=== PATIENT | male | born 1960 | race Asian ===

== ENCOUNTER 2019-01-17 13:11 | Emergency (ER) | payer OTHER ==
[~2019-01-17] VITALS: Ht 165.1 cm; Wt 57.7 kg
[2019-01-17 13:19] VITALS: Ht 165.1 cm; Wt 57.7 kg
--- NOTE | 2019-01-17 14:09 | ERD ---
ER Documentation Chief Complaint Chief Complaint LT sided intermittent CWP x3days, non-provoke radiates to neck/malaise HPI 58-year-old male, with history of sigmoid colon stage III, presents the emergency department, complaining of 3 episodes of left side chest pain. The first episode occurred 3 days ago, the patient was at rest, the pain was sharp, lasted approximately 10 minutes. The second episode occurred last night similar circumstances, lasting 20 minutes approximately. The last episode occurred today prior to arrival, lasting 10 minutes, associated with shortness of breath, nausea and palpitations. ROS All systems reviewed and are negative except as per history of present illness. Medications Home Meds Active Scripts Ranitidine Hcl* (Zantac*) 150 Mg Tablet, 150 MG PO BID PRN for EPIGASTRIC PAIN, #20 TAB Prov:MARLIN SARMIENTO MD 01/17/19 Lorazepam* (Ativan*) 0.5 Mg Tablet, 0.5 MG PO Q8H PRN for ANXIETY, #10 TAB Prov:MARLIN SARMIENTO MD 01/17/19 Allergies Allergies: Coded Allergies: No Known Allergy (Unverified , 01/17/19) PMhx/Soc Hx Miscellaneous Medical Probl: Yes (recent dx of ca, taking PO chemotherapy tablets ) Hx Alcohol Use: No Hx Substance Use: No Hx Tobacco Use: No Smoking Status: Never smoker Physical Exam Vitals Vital Signs Date Temp Pulse Resp B/P (MAP) Pulse Ox O2 O2 Flow FiO2 Time Delivery Rate 01/17/19 97.8 70 18 119/72 99 Room Air 15:47 (88) 01/17/19 97.8 71 20 120/71 99 14:30 (87) 01/17/19 97.8 99 20 117/66 99 13:19 (83) Physical Exam Const: No acute distress Head: Atraumatic Eyes: Normal Conjunctiva ENT: Normal External Ears, Nose and Mouth. Neck: Full range of motion. No meningismus. Resp: Clear to auscultation bilaterally Cardio: Regular rate and rhythm, no murmurs Abd: Soft, non tender, non distended. Normal bowel sounds Skin: No petechiae or rashes Back: No midline or flank tenderness Ext: No cyanosis, or edema Neur: Awake and alert Psych: Normal Mood and Affect Result Diagram: 01/17/19 1424 01/17/19 1424 Results 24 hrs Laboratory Tests Test 01/17/19 14:24 White Blood Count 5.6 10^3/ul Red Blood Count 5.24 10^6/ul Hemoglobin 12.2 g/dl Hematocrit 40.5 % Mean Corpuscular Volume 77.3 fl Mean Corpuscular Hemoglobin 23.3 pg Mean Corpuscular Hemoglobin Concent 30.1 g/dl Red Cell Distribution Width 21.2 % Platelet Count 277 10^3/UL Mean Platelet Volume 8.4 fl Immature Granulocytes % 0.200 % Neutrophils % 73.3 % Lymphocytes % 16.9 % Monocytes % 6.8 % Eosinophils % 2.3 % Basophils % 0.5 % Nucleated Red Blood Cells % 0.0 /100WBC Immature Granulocytes # 0.010 10^3/ul Neutrophils # 4.1 10^3/ul Lymphocytes # 0.9 10^3/ul Monocytes # 0.4 10^3/ul Eosinophils # 0.1 10^3/ul Basophils # 0.0 10^3/ul Nucleated Red Blood Cells # 0.0 10^3/ul Prothrombin Time 12.5 Sec Prothrombin Time Ratio 1.0 INR International Normalized Ratio 0.92 Activated Partial Thromboplast Time 31.4 Sec D-Dimer 324.89 ng/ml D-Dimer Comment Sodium Level 142 mmol/L Potassium Level 4.2 mmol/L Chloride Level 103 mmol/L Carbon Dioxide Level 33 mmol/L Anion Gap 6 Blood Urea Nitrogen 14 mg/dl Creatinine 0.86 mg/dl Est Glomerular Filtrat Rate mL/min > 60 mL/min Glucose Level 86 mg/dl Calcium Level 9.5 mg/dl Troponin I < 0.012 ng/ml B-Type Natriuretic Peptide < 11 PG/ML Lipase 137 U/L Procedures/MDM Vital signs stable. Differential diagnosis include but not limited to: URI, PNA, chostochondritis, GERD, musculoskeletal injury, less likely PE, pericarditis, endocarditis. Pertinent Data: 12 Lead ECG: Sinus rhythm, no ST changes, normal T wave, normal intervals Radiology: Chest x-rays: Normal Physical examination and clinical presentation consistent most likely with chest pain most likely secondary to anxiety During the ED course the patient remained stable, no new complaints. Results and clinical impression discussed with patient who agrees with management. The patient is stable to be treated outpatient and will be discharged home with a Rx for ibuprofen; some side effects of prescribed medications (headache, rash, nausea, vomiting, diarrhea, drowsiness, habituation, bleeding, hypertension, interactions with other medications) were r eviewed. The patient was instructed to follow up with the primary care provider in the next 48h. If symptoms persist, worsen or new symptoms develop, then patient should return to the ED immediately. Instructions explained and given directly by me to the patient with acknowledgment and demonstrated understanding. Disclaimer: Inadvertent spelling and grammatical errors are likely due to EHR/dictation software use and do not reflect on the overall quality of patient care. Also, please note that the electronic time recorded on this note does not necessarily reflect the actual time of the patient encounter. Departure Diagnosis: Primary Impression: Chest pain Additional Impression: Anxiety Condition: Stable Additional Instructions: Thank you very much for allowing us to participate in your care. Your health and safety is our top priority at [facility]. Call your primary care doctor TOMORROW for an appointment during the next 2-4 days and bring all the information and medications prescribed. Have prescriptions filled and follow precisely the directions on the label. If the symptoms get worse and your provider is unavailable, return to the Emergency Department immediately. MARLIN SARMIENTO MD Jan 17, 2019 14:09
[2019-01-17] MEDS ORDERED: LORA-441 PO (15:38)
[2019-01-17] MEDS ORDERED: RANI150T35 PO (15:38)
[2019-01-17 15:47] VITALS: BP 119/72; PULSE 70; RESP 18
== END 2019-01-17 15:48 | disposition home or self-care (01) ==
LOC: FTE 13:11
DX: C18.7 Malignant neoplasm of sigmoid colon (principal)
CPT/HCPCS: 36415; 71046; 80048; 83690; 83880; 84484; 85025; 85378; 85610; 85730; 93005; Z7502; Z7610

== ENCOUNTER 2019-02-26 18:55 | Emergency (ER) | payer OTHER ==
[~2019-02-26] VITALS: Ht 167.6 cm; Wt 58.0 kg
[~2019-02-26 18:55] MED LIST: LORA-441 PO; RANI150T35 PO
[2019-02-26 20:05] VITALS: Ht 167.6 cm; Wt 58.0 kg
[2019-02-26] MEDS ORDERED: morphine 4 MG/ML VIAL IV STA (21:06)
[2019-02-26] MEDS ORDERED: ONDANSETRON 4 MG INJ IV STA (21:06)
[2019-02-26] MEDS ORDERED: SOD CHLORIDE 0.9% 1,000 ML IV STA (21:06)
--- NOTE | 2019-02-26 21:20 | ERD ---
ER Documentation Chief Complaint Chief Complaint AP w/ rectal pain/diarrhea x4 days. no n/v HPI This is a 58-year-old male with a history of stage III sigmoid carcinoma status post sigmoid resection. The patient was initially diagnosed with sigmoid cancer T3 N1 on September 09, 2018. He underwent surgical intervention on November 27, 2018. The surgery was performed at [facility]. The patient is currently undergoing radiation treatment and his radiation oncologist is Dr. Sheron Scruggs and his pulpwood buyer oncologist is Dr. Ariza. The patient had his radiation treatment today. Indicates he takes Abiquiu which often results in diarrhea however he also takes sucralfate and antidiarrheals. He indicates however over the past 2 days he has been having loose stools roughly every 30 minutes. He also complains of pain around the rectal region while stooling. He denies any blood in his stool. He said no fevers or shaking or chills. He denies any abdominal pain or cramping. He has had no shortness of breath at rest or exertion. He has had no recent hospitalizations or antibiotic use. ROS All systems reviewed and are negative except as per history of present illness. Medications Home Meds Active Scripts Ranitidine Hcl* (Zantac*) 150 Mg Tablet, 150 MG PO BID PRN for EPIGASTRIC PAIN, #20 TAB Prov:MARLIN SARMIENTO MD 01/17/19 Lorazepam* (Ativan*) 0.5 Mg Tablet, 0.5 MG PO Q8H PRN for ANXIETY, #10 TAB Prov:MARLIN SARMIENTO MD 01/17/19 Allergies Allergies: Coded Allergies: No Known Allergy (Unverified , 01/17/19) PMhx/Soc Hx Miscellaneous Medical Probl: Yes (recent dx of ca, taking PO chemotherapy tablets ) Hx Alcohol Use: No Hx Substance Use: No Hx Tobacco Use: No Physical Exam Vitals Vital Signs Date Temp Pulse Resp B/P (MAP) Pulse Ox O2 O2 Flow FiO2 Time Delivery Rate 02/26/19 98.8 58 16 144/76 100 20:05 (98) Physical Exam Constitutional:Well-developed. Well-nourished. HEENT:Normocephalic. Atraumatic.Pupils were equal round reactive to light. Dry mucous membranes.No tonsillar exudates. Neck: No nuchal rigidity. No lymphadenopathy. No posterior cervical spine tenderness or step-offs. Respiratory: Not using accessory muscles of respiration.Lungs were clear to auscultation bilaterally. No rhonchi. No rales. No wheezing. Cardiovascular: Regular rate regular rhythm.No murmurs. No rubs were apprecia nancy.S1, S2 normal. Distal pulses are palpable 2+ bilaterally. GI: Abdomen was soft. Mild tenderness in left lower quadrant with midline surgical scar beneath the umbilicus. Non Distended. No pulsatile abdominal masses or bruits. No rebound. No guarding. Bowel sounds were present and normal. Rectal: No surrounding perirectal erythremia or tenderness. Fecal occult blood test positive and no gross blood per rectum. Muscle skeletal: Full range of motion of both the upper and lower extremities bilaterally.Normal muscle tone.No assymetrical calf tenderness or swelling. Skin: No petechia, no purpura. No lesions on the palms or the soles of the feet. No maculopapular rash. NEURO: Patient was alert, awake, orientated x3.No facial droop. Gait observed and normal with no ataxia.Speech had regular rate and rhythm. No focal neurological deficits. Result Diagram: 02/26/19211602/26/192116 Results 24 hrs Laboratory Tests Test 02/26/19 21:17 White Blood Count 5.5 10^3/ul Red Blood Count 4.74 10^6/ul Hemoglobin 12.0 g/dl Hematocrit 38.4 % Mean Corpuscular Volume 81.0 fl Mean Corpuscular Hemoglobin 25.3 pg Mean Corpuscular Hemoglobin Concent 31.3 g/dl Red Cell Distribution Width 20.8 % Platelet Count 263 10^3/UL Mean Platelet Volume 8.1 fl Immature Granulocytes % 0.400 % Neutrophils % 77.4 % Lymphocytes % 5.3 % Monocytes % 10.8 % Eosinophils % 5.7 % Basophils % 0.4 % Nucleated Red Blood Cells % 0.0 /100WBC Immature Granulocytes # 0.020 10^3/ul Neutrophils # 4.2 10^3/ul Lymphocytes # 0.3 10^3/ul Monocytes # 0.6 10^3/ul Eosinophils # 0.3 10^3/ul Basophils # 0.0 10^3/ul Nucleated Red Blood Cells # 0.0 10^3/ul Prothrombin Time 12.7 Sec Prothrombin Time Ratio 1.0 INR International Normalized Ratio 0.94 Activated Partial Thromboplast Time Pending Urine Color YELLOW Urine Clarity CLEAR Urine pH 6.0 Urine Specific Har[place]ld 1.013 Urine Ketones NEGATIVE mg/dL Urine Nitrite NEGATIVE mg/dL Urine Bilirubin NEGATIVE mg/dL Urine Urobilinogen NEGATIVE mg/dL Urine Leukocyte Esterase NEGATIVE Dona/ul Urine Microscopic RBC 3 /HPF Urine Microscopic WBC 5 /HPF Urine Bacteria FEW /HPF Urine Mucus FEW /HPF Urine Hemoglobin 1+ mg/dL Urine Glucose NEGATIVE mg/dL Urine Total Protein NEGATIVE mg/dl Sodium Level 141 mmol/L Potassium Level 3.7 mmol/L Chloride Level 102 mmol/L Carbon Dioxide Level 31 mmol/L Anion Gap 8 Blood Urea Nitrogen 10 mg/dl Creatinine 1.14 mg/dl Est Glomerular Filtrat Rate mL/min > 60 mL/min Glucose Level 98 mg/dl Calcium Level 9.6 mg/dl Total Bilirubin 0.6 mg/dl Direct Bilirubin 0.00 mg/dl Indirect Bilirubin 0.6 mg/dl Aspartate Amino Transf (AST/SGOT) 17 IU/L Alanine Aminotransferase (ALT/SGPT) 9 IU/L Alkaline Phosphatase 87 IU/L Troponin I < 0.012 ng/ml Total Protein 7.6 g/dl Albumin 4.3 g/dl Globulin 3.30 g/dl Albumin/Globulin Ratio 1.30 Amylase Level 95 U/L Lipase 76 U/L Current Medications Medications Dose Sig/Anna Start Time Status Last (Trade) Ordered Route PRN Stop Time Admin Dose Reason Admin Sodium 1,000 ml @ Q1H STAT 02/26/19 DC 02/26/19 Chloride 1,000 mls/hr IV 21:06 02/26/19 21:29 22:05 Morphine 4 mg ONCE STAT 02/26/19 DC 02/26/19 Sulfate IV 21:06 02/26/19 21:29 (morphine) 21:08 Ondansetron 4 mg ONCE STAT 02/26/19 DC 02/26/19 HCl (Zofran IV 21:06 02/26/19 21:29 Inj) 21:08 1 tab ONCE ONCE 02/26/19 DC Diphenoxylate PO 23:30 02/26/19 HCl/ 23:31 Atropine (Lomotil) Procedures/MDM This patient presented to the emergency department with abdominal pain and diarrhea and was seen and evaluated by myself. My differential diagnosis included but was not limited to abdominal aortic aneurysm, appendicitis, pancre atitis, perforated peptic ulcer, perforated viscus, Boerhaave's syndrome or visceral pain such as diverticulitis, DKA, esophagitis, hepatitis or bowel obstruction. The patient was placed on a tow driver, continuous pulse oximetry, and IV access was established by nursing staff. She was given intravenous morphine and Zofran. I obtained a 12-lead EKG tracing to rule out for atypical myocardial infarction: 12 Lead EKG tracing ordered and reviewed by myself showed: Normal sinus rhythm of 72 bpm and no arrhythmia. PA interval normal. QRS duration normal. No ST segment elevation No ST segment depression. No changes consistent with acute ischemia. The patient had no severe electrolyte such as hyperkalemia given that he had increased diarrhea production. I did feel is necessary to obtain a CT scan of the patient's abdomen given his history of sigmoid carcinoma with surgical resection, diarrhea and abdominal tenderness. CT scan reviewed by the radiologist indicate the followin. Absent right kidney. Compensatory hypertrophy left kidney. 4 mm left renal cyst. No calculus or hydronephrosis. 2. Postop change of the rectum. Residual mural thickening, of uncertain significance. 3. Diffuse diverticulosis of the colon. No acute diverticulitis. 4. No acute abnormality demonstrated in the abdomen and pelvis. Observation Note: Time: 4 hours Family Hx: No Hypertension Evaluation: Multiple exams showed improving symptoms. I indicated the patient did have an exact etiology into his diarrhea but I did not appear to be a result of Clostridium difficile or other infectious process. The patient had upped his dose of radiation which could have exacerbated his symptoms and he did feel comfortable being discharged home. He was given antidiarrheals in the emergency department as well as IV fluids. The patient was discharged home in fair condition. They were instructed to return to the emergency department at any time if there was any worsening of their condition. The patient stated they would follow up with their PCP in the next 24-48 hours to initiate a suitable medication regimen under the care of their PCP as well as to allow their PCP to monitor any drug reactions. The patient was discharged home with prescriptions after they gave informed consent to the new medication. They were also fully informed by myself on the adverse effects and adverse drug interactions in order to provide adequate safeguards to prevent possible adverse reactions to medications. Departure Diagnosis: Primary Impression: Diarrhea Diarrhea type: unspecified type Qualified Codes: R19.7 - Diarrhea, unspecified Additional Impression: Diverticulosis Condition: LORENA Sue MD Feb 26, 2019 21:20
[2019-02-26] MEDS ORDERED: DIPHENOXYLATE/ATROPINE TAB PO ONE (23:30)
[2019-02-27 01:11] VITALS: BP 123/83; PULSE 66; RESP 16
== END 2019-02-27 01:12 | disposition home or self-care (01) ==
LOC: E/R 18:55
DX: K57.30 Diverticulosis of large intestine without perforation or abscess without bleeding (principal); Z85.038 Personal history of other malignant neoplasm of large intestine
CPT/HCPCS: 74177; 80053; 81001; 82150; 83690; 84484; 85025; 85610; 85730; 87086; 93005; 96374; 96375; J2270; J2405; J7030; Z7502; Z7610

== ENCOUNTER 2019-03-23 20:06 | Emergency (ER) | payer OTHER ==
[~2019-03-23] VITALS: Ht 167.6 cm; Wt 56.7 kg
[2019-03-23 20:10] VITALS: Ht 167.6 cm; Wt 56.7 kg
[2019-03-23] MEDS ORDERED: morphine 4 MG/ML VIAL IV STA (20:39)
[2019-03-23] MEDS ORDERED: ONDANSETRON 4 MG INJ IV STA (20:39)
[2019-03-23] MEDS ORDERED: SOD CHLORIDE 0.9% 1,000 ML IV STA (20:39)
[2019-03-23 22:00] VITALS: BP 131/85; PULSE 78; RESP 17
[2019-03-23] MEDS ORDERED: ACETAMINOPHEN 325 MG TAB PO PRN (22:00)
[2019-03-23] MEDS ORDERED: ONDANSETRON 4 MG INJ IV PRN (22:00)
--- NOTE | 2019-03-23 22:30 | ERD ---
ER Documentation Chief Complaint Chief Complaint diarrhea x 8 this PM; colon CA on tx; afebrile HPI Patient is a 58-year-old male with a history of sigmoid cancer who presents with diarrhea. He said that this morning he had 8-9 episodes of diarrhea. The diarrhea is nonbloody and he describes it as soft and mucousy. He has no fev ers. He has abdominal cramping. He said that he is tried Imodium as well as diphenoxylate and atropine. He was worked up on February 26 for the same with a basically negative work-up and was discharged home. He then was seen in the [facility] emergency department 2 weeks ago. He said he would prefer to stay overnight. Upon review of old medical records this is the patient's third visit to the ER since December 2018. ROS All systems reviewed and are negative except as per history of present illness. Medications Home Meds Active Scripts Ranitidine Hcl* (Zantac*) 150 Mg Tablet, 150 MG PO BID PRN for EPIGASTRIC PAIN, #20 TAB Prov:MARLIN SARMIENTO MD 01/17/19 Lorazepam* (Ativan*) 0.5 Mg Tablet, 0.5 MG PO Q8H PRN for ANXIETY, #10 TAB Prov:MARLIN SARMIENTO MD 01/17/19 Allergies Allergies: Coded Allergies: No Known Allergy (Unverified , 01/17/19) PMhx/Soc History of Surgery: Yes (Sigmoid colon CA, bilat eye retinal detachment, donated R kidney,) Anesthesia Reaction: No Hx Neurological Disorder: No Hx Respiratory Disorders: No Hx Cardiac Disorders: No Hx Psychiatric Problems: No Hx Miscellaneous Medical Probl: Yes (sigmoid colon CA dx 2017, on chemo pills ) Hx Alcohol Use: No Hx Substance Use: No Hx Tobacco Use: Yes (quit years ago) Smoking Status: Former smoker FmHx Family History: No diabetes Physical Exam Vitals Vital Signs Date Temp Pulse Resp B/P (MAP) Pulse Ox O2 O2 Flow FiO2 Time Delivery Rate 03/23/19 97.6 84 18 157/103 100 20:10 (121) Physical Exam Const: No acute distress Head: Atraumatic Eyes: Normal Conjunctiva ENT: Normal External Ears, Nose and Mouth. Neck: Full range of motion. No meningismus. Resp: Clear to auscultation bilaterally Cardio: Regular rate and rhythm, no murmurs Abd: Soft, non tender, non distended. Normal bowel sounds Skin: No petechiae or rashes Back: No midline or flank tenderness Ext: No cyanosis, or edema Neur: Awake and alert Psych: Normal Mood and Affect Result Diagram: 03/23/19203203/23/192032 Results 24 hrs Laboratory Tests Test 03/23/19 20:33 White Blood Count 5.7 10^3/ul Red Blood Count 5.02 10^6/ul Hemoglobin 13.2 g/dl Hematocrit 41.5 % Mean Corpuscular Volume 82.7 fl Mean Corpuscular Hemoglobin 26.3 pg Mean Corpuscular Hemoglobin Concent 31.8 g/dl Red Cell Distribution Width 20.5 % Platelet Count 270 10^3/UL Mean Platelet Volume 8.0 fl Immature Granulocytes % 0.200 % Neutrophils % 80.1 % Lymphocytes % 6.1 % Monocytes % 9.8 % Eosinophils % 3.1 % Basophils % 0.7 % Nucleated Red Blood Cells % 0.0 /100WBC Immature Granulocytes # 0.010 10^3/ul Neutrophils # 4.6 10^3/ul Lymphocytes # 0.4 10^3/ul Monocytes # 0.6 10^3/ul Eosinophils # 0.2 10^3/ul Basophils # 0.0 10^3/ul Nucleated Red Blood Cells # 0.0 10^3/ul Sodium Level 143 mmol/L Potassium Level 3.6 mmol/L Chloride Level 104 mmol/L Carbon Dioxide Level 30 mmol/L Anion Gap 9 Blood Urea Nitrogen 13 mg/dl Creatinine 1.04 mg/dl Est Glomerular Filtrat Rate mL/min > 60 mL/min Glucose Level 85 mg/dl Calcium Level 9.6 mg/dl Total Bilirubin 0.6 mg/dl Direct Bilirubin 0.00 mg/dl Indirect Bilirubin 0.6 mg/dl Aspartate Amino Transf (AST/SGOT) 22 IU/L Alanine Aminotransferase (ALT/SGPT) 14 IU/L Alkaline Phosphatase 65 IU/L Total Protein 7.7 g/dl Albumin 4.5 g/dl Globulin 3.20 g/dl Albumin/Globulin Ratio 1.40 Lipase 69 U/L Current Medications Medications Dose Sig/Anna Start Time Status Last (Trade) Ordered Route PRN Stop Time Admin Dose Reason Admin Sodium 1,000 ml @ Q1H STAT 03/23/19 DC 03/23/19 Chloride 1,000 mls/hr IV 20:39 21:03 03/23/19 21:38 Morphine 4 mg ONCE STAT 03/23/19 DC 03/23/19 Sulfate IV 20:39 21:03 (morphine) 03/23/19 20:40 Ondansetron 4 mg ONCE STAT 03/23/19 DC 03/23/19 HCl (Zofran IV 20:39 21:03 Inj) 03/23/19 20:40 Ondansetron 4 mg BRIDGE ORDER 03/23/19 HCl (Zofran PRN IV 22:00 Inj) NAUSEA/VOMITI 03/24/19 21:59 NG 650 mg ER BRIDGE 03/23/19 Acetaminophen PRN PO 22:00 (Tylenol .MILD PAIN 03/24/19 21:59 Tab) 1-3 OR TEMP Procedures/MDM Patient is a 58-year-old male presents with abdominal pain with diarrhea. Laboratory studies are basically normal including normal white count, LFTs, and lipase. I gave him a normal saline 1 L bolus for fluid resuscitation. I spoke with Dr. Murray who is the hospitalist covering for his insurance and he does not feel the patient requires admission to the hospital at this time. 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 He is going to arrange for outpatient gastroenterology follow-up however for the patient this week. The patient can return for any worsening symptoms. I doubt appendicitis, cholecystitis, pink otitis, or bowel obstruction. Departure Diagnosis: Primary Impression: Diarrhea Diarrhea type: unspecified type Qualified Codes: R19.7 - Diarrhea, unspecified Condition: Fair Patient Instructions: Treating Diarrhea Referrals: GI doctor Additional Instructions: SPECIALIST: YOU HAVE A MEDICAL CONDITION WHICH REQUIRES YOU TO SEE A SPECIALIST WITHIN THE NEXT 1-2 DAYS. PLEASE FOLLOW UP WITH YOUR PRIMARY PHYSICIAN FOR REFFERAL.IF YOU DO NOT HAVE A PRIMARY CARE PHYSICIAN AND/OR YOU CAN NOT AFFORD TO SEE A PHYSICIAN THE FOLLOWING RESOURCES HAVE BEEN SUPPLIED TO YOU. IT IS YOUR RESPONSIBILITY TO BE SEEN BY THE SPECIALIST FRANSISCO PUGA MD Mar 23, 2019 22:30
== END 2019-03-23 22:47 | disposition home or self-care (01) ==
LOC: E/R 20:06 → CANBEDREQ 21:53 → E/R 22:47
DX: R19.7 Diarrhea, unspecified (principal); Z85.038 Personal history of other malignant neoplasm of large intestine; Z87.891 Personal history of nicotine dependence
CPT/HCPCS: 80053; 83690; 85025; J2270; J2405; J7030; 36415; 96374; 96375

== ENCOUNTER 2019-06-13 23:19 | Emergency (ER) | payer OTHER ==
[~2019-06-13] VITALS: Ht 167.6 cm; Wt 62.4 kg
[2019-06-13 23:26] VITALS: Ht 167.6 cm; Wt 62.4 kg
[2019-06-13] MEDS ORDERED: SOD CHLORIDE 0.9% 1,000 ML IV STA (23:58)
[2019-06-14] MEDS ORDERED: morphine 2 MG INJ IV STA (00:31)
--- NOTE | 2019-06-14 00:50 | ERD ---
ER Documentation Chief Complaint Chief Complaint rectal pain w/diarrhea 6x today;hx colon CA ChemoTx HPI This is a 58-year-old male with a history of colon cancer on chemotherapy who presents to the emergency room for evaluation of abdominal cramping and diarrhea which is been present for the past 24 hours. The patient describes diarrhea as watery and denies any blood in the feces. The patient states that when this happens normally he comes to the ER and gets IV fluids and does feel better. The patient denies any nausea, vomiting, fever or chills. ROS All systems reviewed and are negative except as per history of present illness. Medications Home Meds Active Scripts Ranitidine Hcl* (Zantac*) 150 Mg Tablet, 150 MG PO BID PRN for EPIGASTRIC PAIN, #20 TAB Prov:MARLIN SARMIENTO MD 01/17/19 Lorazepam* (Ativan*) 0.5 Mg Tablet, 0.5 MG PO Q8H PRN for ANXIETY, #10 TAB Prov:MARLIN SARMIENTO MD 01/17/19 Allergies Allergies: Coded Allergies: No Known Allergy (Unverified , 01/17/19) PMhx/Soc History of Surgery: Yes (Sigmoid colon CA, bilat eye retinal detachment, donated R kidney,) Anesthesia Reaction: No Hx Neurological Disorder: No Hx Respiratory Disorders: No Hx Cardiac Disorders: No Hx Psychiatric Problems: No Hx Miscellaneous Medical Probl: Yes (sigmoid colon CA dx 2017, on chemo pills ) Hx Alcohol Use: No Hx Substance Use: No Hx Tobacco Use: Yes (quit years ago) Smoking Status: Current some day smoker Physical Exam Vitals Vital Signs Date Temp Pulse Resp B/P (MAP) Pulse Ox O2 O2 Flow FiO2 Time Delivery Rate 06/13/19 98.1 79 18 114/83 100 Room Air 23:58 (93) 06/13/19 98.1 80 18 125/72 100 23:26 (89) Physical Exam INITIAL VITAL SIGNS: Reviewed by me GENERAL: The patient is well developed and appropriate for usual state of health in no apparent distress HEENT: Dry mucous membranes, pupils equal, round, and reactive to light. EOMI. There is no scleral icterus. NECK: C-spine is soft and supple, there is no meningismus. There is no cervical lymphadenopathy. LUNGS: Clear to auscultation bilaterally. There are no rales, wheezes or rhonchi. HEART: Regular rate and rhythm, no murmurs, clicks, rubs or gallops. ABDOMEN: Soft, non-tender, non-distended. There are bowel sounds in all four quadrants. No rebound or guarding. EXTREMITIES: There is no peripheral cyanosis or edema. No focal swelling or erythema. NEUROLOGICAL: The patient moves all four extremities with 5/5 strength. Cranial nerves II - XII are intact. Normal gait. Alert and oriented SKIN: There is no apparent rash or petechiae. HEME/LYMPHATIC: There is no evidence of excessive bruising or lymphedema. PSYCHIATRIC: The patient does not appear anxious or depressed. Result Diagram: 06/14/19 0002 06/14/19 0002 Results 24 hrs Laboratory Tests Test 06/14/19 00:02 White Blood Count 4.3 10^3/ul Red Blood Count 3.84 10^6/ul Hemoglobin 12.0 g/dl Hematocrit 37.0 % Mean Corpuscular Volume 96.4 fl Mean Corpuscular Hemoglobin 31.3 pg Mean Corpuscular Hemoglobin Concent 32.4 g/dl Red Cell Distribution Width 16.0 % Platelet Count 218 10^3/UL Mean Platelet Volume 8.7 fl Immature Granulocytes % 0.500 % Neutrophils % 73.1 % Lymphocytes % 8.4 % Monocytes % 12.4 % Eosinophils % 4.9 % Basophils % 0.7 % Nucleated Red Blood Cells % 0.0 /100WBC Immature Granulocytes # 0.020 10^3/ul Neutrophils # 3.1 10^3/ul Lymphocytes # 0.4 10^3/ul Monocytes # 0.5 10^3/ul Eosinophils # 0.2 10^3/ul Basophils # 0.0 10^3/ul Nucleated Red Blood Cells # 0.0 10^3/ul Sodium Level 141 mmol/L Potassium Level 4.0 mmol/L Chloride Level 103 mmol/L Carbon Dioxide Level 31 mmol/L Anion Gap 7 Blood Urea Nitrogen 20 mg/dl Creatinine 1.35 mg/dl Est Glomerular Filtrat Rate mL/min 55 mL/min Glucose Level 87 mg/dl Calcium Level 8.8 mg/dl Total Bilirubin 1.0 mg/dl Direct Bilirubin 0.00 mg/dl Indirect Bilirubin 1.0 mg/dl Aspartate Amino Transf (AST/SGOT) 23 IU/L Alanine Aminotransferase (ALT/SGPT) 23 IU/L Alkaline Phosphatase 83 IU/L Total Protein 7.0 g/dl Albumin 4.0 g/dl Globulin 3.00 g/dl Albumin/Globulin Ratio 1.33 Lipase 96 U/L Current Medications Medications Dose Sig/Anna Start Time Status Last (Trade) Ordered Route PRN Stop Time Admin Dose Reason Admin Sodium 1,000 ml @ Q1H STAT 06/13/19 06/14/19 Chloride 1,000 mls/hr IV 23:58 00:06 06/14/19 00:57 Morphine 2 mg ONCE STAT 06/14/19 DC 06/14/19 Sulfate IV 00:31 00:36 (morphine) 06/14/19 00:32 Procedures/MDM This 58-year-old male presents to the ER for evaluation of diarrhea. He is on chemotherapy for colon cancer. On my exam he is afebrile and nontoxic-appearing and hemodynamically stable. The patient did have labs drawn which are normal. He was given IV fluids and IV analgesia for his cramping. On reevaluation he is feeling better and stable for discharge. Departure Diagnosis: Primary Impression: Diarrhea with dehydration Additional Impression: History of colon cancer Condition: OSKAR Coyne DO Jun 14, 2019 00:50
[2019-06-14 00:59] VITALS: BP 104/70; PULSE 74; RESP 18
== END 2019-06-14 00:59 | disposition home or self-care (01) ==
LOC: E/R 23:19
DX: E86.0 Dehydration (principal); C18.9 Malignant neoplasm of colon, unspecified; F17.210 Nicotine dependence, cigarettes, uncomplicated
CPT/HCPCS: 36415; 80053; 83690; 85025; 96374; J2270; J7030; Z7502

== ENCOUNTER 2019-08-01 23:56 | Emergency (ER) | payer OTHER ==
[~2019-08-01] VITALS: Ht 167.6 cm; Wt 65.3 kg
[2019-08-02 00:01] VITALS: Ht 167.6 cm; Wt 65.3 kg
[2019-08-02] MEDS ORDERED: SOD CHLORIDE 0.9% 1,000 ML IV STA (00:44)
[2019-08-02] MEDS ORDERED: HYDROCODONE/APAP (5/325) TAB PO ONE (01:30)
[2019-08-02 01:43] VITALS: BP 112/81; PULSE 83; RESP 18
== END 2019-08-02 01:45 | disposition home or self-care (01) ==
LOC: E/R 23:56
DX: R19.7 Diarrhea, unspecified (principal); D01.2 Carcinoma in situ of rectum
CPT/HCPCS: 36415; 80053; 85025; J7030; Z7502; Z7610